=== PATIENT | female | born 1965 | race Two or more races ===

== ENCOUNTER 2022-06-23 08:10 | Emergency (ER) | payer OTHER ==
[2022-06-23 08:19] VITALS: BP 157/86; PULSE 98; RESP 17; TEMP 97.6; BMI 36.3
== END 2022-06-23 09:44 | disposition home or self-care (01) ==
LOC: JER 08:10
DX: M25.562 Pain in left knee (principal)
CPT/HCPCS: 73562-TC-LT-FY; 99283-25